=== PATIENT | male | born 1970 | race Caucasian/White ===

== ENCOUNTER 2019-04-04 01:05 | Emergency (ER) | payer OTHER ==
[~2019-04-04] VITALS: Ht 167.6 cm; Wt 113.4 kg
[~2019-04-04 01:05] MED LIST: BENA10TA4 PO; CARV12.598 PO; CIPR500T4 PO; HYDR-4011 PO; SPIR25TA PO; TAMS-14 PO
[2019-04-04 01:17] VITALS: Ht 167.6 cm; Wt 113.4 kg
[2019-04-04] MEDS ORDERED: ONDANSETRON 4 MG INJ IV STA (03:22)
[2019-04-04] MEDS ORDERED: KETOROLAC 15 MG INJ IV STA (03:22)
[2019-04-04] MEDS ORDERED: SOD CHLORIDE 0.9% 1,000 ML IV STA (03:22)
--- NOTE | 2019-04-04 04:03 | ERD ---
ER Documentation Chief Complaint Chief Complaint AP AND NAUSEA X TODAY. HPI This is a 48-year-old male with a past medical history of hypertension, cardiac disease, previous epididymitis, recent diagnosis of kidney stones who is pres enting with waxing and waning sharp stabbing colicky moderate left-sided flank pain radiating into the left side of his abdomen and into his groin with associated nausea but no vomiting. The patient reports that this feels like his previous kidney stone. He currently denies any dysuria or hematuria or urgency. He reports that he has been trying to drink a lot of water today and has been peeing a lot, which he would expect. The patient does not endorse any alleviating or exacerbating factors. His symptoms started suddenly this afternoon, and he was unable to get the pain under control at home on his own. He does not endorse any constipation or diarrhea. He does not report black or bloody or tarry stools. The patient denies feeling sick recently. The patient denies fever or chills. The patient has had no headache or vision changes. The patient does not endorse neck or back pain. The patient denies lightheadedness or dizziness. The patient has had no chest pain or trouble breathing. The patient has had no focal deficits. The patient has had no weakness or numbness or tingling to the face or extremities. ROS All systems reviewed and are negative except as per history of present illness. Medications Home Meds Active Scripts Hydrocodone/Acetaminophen ([place] 5-325 Tablet) 1 Each Tablet, 1 TAB PO Q6H PRN for PAIN, #20 TAB Prov:JALEEL MCDOWELL DO 06/11/16 Tamsulosin Hcl* (Flomax*) 0.4 Mg Cap.er.24h, 0.4 MG PO QPM, #30 CAP Prov:JALEEL MCDOWELL DO 06/11/16 Reported Medications Carvedilol* (Coreg*) 12.5 Mg Tablet, 12.5 MG PO BID, #60 TAB 06/11/16 Benazepril Hcl* (Benazepril Hcl*) 10 Mg Tablet, 10 MG PO DAILY, TAB 05/22/15 Discontinued Reported Medications Spironolactone* (Aldactone*) 25 Mg Tablet, 25 MG PO BID, #60 TAB 06/11/16 Discontinued Scripts Ciprofloxacin Hcl* (Ciprofloxacin Hcl*) 500 Mg Tablet, 500 MG PO BID for 10 Days, TAB Prov:JALEEL MCDOWELL DO 06/11/16 Allergies Allergies: Coded Allergies: No Known Allergy (Unverified , 04/04/19) PMhx/Soc Medical and Surgical Hx: pt denies Surgical Hx History of Surgery: No Anesthesia Reaction: No Hx Neurological Disorder: No Hx Respiratory Disorders: No Hx Cardiac Disorders: Yes (Hypertension, cardiac disease) Hx Psychiatric Problems: No Hx Miscellaneous Medical Probl: Yes (BPH) Hx Alcohol Use: No Hx Substance Use: No Hx Tobacco Use: Yes (12 cigarettes/day) Smoking Status: Current every day smoker FmHx Family History: No diabetes Physical Exam Vitals Vital Signs Date Temp Pulse Resp B/P (MAP) Pulse Ox O2 O2 Flow FiO2 Time Delivery Rate 04/04/19 98.0 78 16 147/93 99 Room Air 06:39 (111) 04/04/19 87 18 162/95 99 Room Air 05:55 (117) 04/04/19 83 19 172/98 97 Room Air 04:55 (122) 04/04/19 98.3 66 22 240/119 100 01:17 (159) Physical Exam Const: No apparent distress, well-developed, well-nourished Head: Normocephalic, Atraumatic Eyes: Normal Conjunctiva. Extraocular movements grossly intact. ENT: Normal External Ears, Nose and Mouth. Neck: Full range of motion. No meningismus. Resp: Clear to auscultation bilaterally, No wheezes, rales or rhonchi Cardio: Regular rate and rhythm. No murmurs, rubs or gallops Abd: Soft, non tender, non distended. Normal bowel sounds : Uncircumcised. No scrotal or testicular edema. Left-sided testicular tenderness. No obvious epididymal enlargement. Skin: No petechiae or rashes Back: No midline tenderness. Left-sided CVA tenderness Ext: No cyanosis, or edema Neur: Awake and alert, oriented 4. Cranial nerves intact. No facial droop. Normal strength, sensation and coordination. Psych: Normal Mood and Affect Result Diagram: 04/04/19 0540 04/04/19 0540 Results 24 hrs Laboratory Tests Test 04/04/19 05:40 04/04/19 05:55 White Blood Count 12.9 10^3/ul Red Blood Count 5.19 10^6/ul Hemoglobin 15.9 g/dl Hematocrit 44.3 % Mean Corpuscular Volume 85.4 fl Mean Corpuscular Hemoglobin 30.6 pg Mean Corpuscular Hemoglobin Concent 35.9 g/dl Red Cell Distribution Width 13.2 % Platelet Count 242 10^3/UL Mean Platelet Volume 9.6 fl Immature Granulocytes % 0.300 % Neutrophils % 78.2 % Lymphocytes % 13.8 % Monocytes % 6.7 % Eosinophils % 0.5 % Basophils % 0.5 % Nucleated Red Blood Cells % 0.0 /100WBC Immature Granulocytes # 0.040 10^3/ul Neutrophils # 10.1 10^3/ul Lymphocytes # 1.8 10^3/ul Monocytes # 0.9 10^3/ul Eosinophils # 0.1 10^3/ul Basophils # 0.1 10^3/ul Nucleated Red Blood Cells # 0.0 10^3/ul Sodium Level 141 mmol/L Potassium Level 3.1 mmol/L Chloride Level 106 mmol/L Carbon Dioxide Level 23 mmol/L Anion Gap 12 Blood Urea Nitrogen 17 mg/dl Creatinine 1.28 mg/dl Est Glomerular Filtrat Rate mL/min 59 mL/min Glucose Level 118 mg/dl Calcium Level 8.5 mg/dl Total Bilirubin 0.8 mg/dl Direct Bilirubin 0.00 mg/dl Indirect Bilirubin 0.8 mg/dl Aspartate Amino Transf (AST/SGOT) 29 IU/L Alanine Aminotransferase (ALT/SGPT) 24 IU/L Alkaline Phosphatase 94 IU/L Total Protein 7.7 g/dl Albumin 4.3 g/dl Globulin 3.40 g/dl Albumin/Globulin Ratio 1.26 Lipase 64 U/L Urine Color COLORLESS Urine Clarity CLEAR Urine pH 8.0 Urine Specific [place] 1.006 Urine Ketones NEGATIVE mg/dL Urine Nitrite NEGATIVE mg/dL Urine Bilirubin NEGATIVE mg/dL Urine Urobilinogen NEGATIVE mg/dL Urine Leukocyte Esterase NEGATIVE Denis/ul Urine Hemoglobin NEGATIVE mg/dL Urine Glucose NEGATIVE mg/dL Urine Total Protein NEGATIVE mg/dl Current Medications Medications Dose Sig/Yoan Start Time Status Last (Trade) Ordered Route PRN Stop Time Admin Dose Reason Admin Sodium 1,000 ml @ Q1H STAT 04/04/19 DC 04/04/19 Chloride 1,000 mls/hr IV 03:22 04/04/19 03:33 04:21 Ondansetron 4 mg ONCE STAT 04/04/19 DC 04/04/19 HCl (Zofran IV 03:22 04/04/19 03:33 Inj) 03:25 Ketorolac 15 mg ONCE STAT 04/04/19 DC 04/04/19 Tromethamine IV 03:22 04/04/19 03:33 (Toradol) 03:25 Nicardipine 30 mg ONCE ONCE 04/04/19 DC 04/04/19 HCl PO 04:30 04/04/19 04:16 (Cardene) 04:31 Fentanyl 50 mcg ONCE ONCE 04/04/19 DC 04/04/19 (Sublimaze) IV 04:30 04/04/19 04:16 04:31 Procedures/MDM MDM The patient's presentation warrants further investigation. Previous medical records, if available, were reviewed. LABS The patient's laboratory testing was obtained and reviewed. No emergent treatment was required unless described below. CBC: Mild leukocytosis, likely reactive. No E/o severe anemia or thrombocytopenia Chemistry: Hypokalemia, nonemergent. Mildly elevated creatinine, not emergent. No E/o severe acidosis or alkalosis or renal failure or liver disease or diabetic ketoacidosis Lipase: No E/o pancreatitis Urine: No E/o acute infection or hematuria IMAGING Imaging and Radiology interpretation reviewed. Ultrasound scrotum FINDINGS: Testicles are normal in size the right measuring 4.84 x 2.56 x 3.21 cm and the left measuring 4.77 x 2.26 x 3.23 cm. The testicular parenchymal echogenicity is homogeneous without focal lesions. Flow to both testicles without ultrasonic evidence of ovarian torsion. The epididymi are prominent with the right head measuring 1.75 x 0.78 x 0.91 cm and the left measuring 1.57 x 0.82 x 0.82 cm. No focal epididymal lesions demonstrated. Bilateral mild to moderate hydroceles. IMPRESSION: 1. Unremarkable testicles without focal lesions and no ultrasonic evidence of testicular torsion. 2. Prominent epididymi without focal lesions. Rule out epididymitis. 3. Mild to moderate bilateral hydroceles. Electronically viewed and signed by Physician Linnette on 04/04/2019 06:10 TREATMENT/DISPOSITION The patient presents for left-sided flank pain. The patient has had kidney stones in the past, my suspicion for nephrolithiasis is high. However, given the patient's lack of hematuria, I have very low suspicion for nephrolithiasis or renal colic. The patient also has a history of epididymitis and later endorsed that his symptoms today do feel similar to previous episodes of epididymitis. The patient does not believe he could have a sexually transmitted infection. His scrotal ultrasound revealed the possibility of epididymitis. I will treat for this. The patient was treated with IV fluids, Toradol and Zofran in the emergency department with some improvement of his symptoms. He is ultimately given a dose of fentanyl. .The patient does not have any evidence of peritonitis. The patient does not have clinical symptoms concerning for mesenteric ischemia or ischemic colitis. The patient does not have right upper quadrant tenderness, and I have low suspicion for gallstones, cholecystitis or biliary colic. The patient does not have any epigastric pain. I have low suspicion for gastritis, PUD or GERD. The patient does not have left upper quadrant tenderness. I have low suspicion for pancreatitis. The patient does not have any right lower quadrant tenderness, or periumbilical tenderness. I have low suspicion for appendicitis. The patient does not have suprapubic tenderness. I have decreased suspicion for cystitis. The patient does not have any left lower quadrant tenderness, and I have low suspicion for diverticulosis or diverticulitis. The patient does not have any palpable pulsatile mass or severe abdominal pain radiating to the back. I have low suspicion for aortic aneurysm, dissection or rupture. The patient's blood pressure was elevated at greater than 200/110 while in the emergency department. The patient did require a dose of Cardene in the emergency department to bring his blood pressure to not emergent levels. He admits to missing all of his blood pressure medications yesterday. The patient does have a mildly elevated creatinine, which could be related to his blood pressure. He understands the importance of taking them. The patient was otherwise stable with no evidence of hypertensive urgency or emergency. The patient does not require admission for blood pressure control. I have discussed with the patient the risks of hypertension. I have instructed the patient to return to the ER for any new or worsening symptoms including chest pain, linda rtness of breath, headache, blurred vision, confusion, nausea, vomiting or LOC. I have advised the patient to follow up with the primary care physician for outpatient monitoring and treatment for hypertension in 1-3 days. DISCHARGE Upon reevaluation of the patient, symptoms have improved. No emergent diagnoses were identified. At this time, I feel that the patient stable for discharge. The patient was instructed to follow-up with a primary care physician in 1-3 days. The patient will be given strict precautions with which to return to the emergency department. Prescriptions: Levaquin, ibuprofen Disclaimer: Inadvertent spelling and grammatical errors are likely due to EHR/dictation software use and do not reflect on the overall quality of patient care. Note that the electronic time recorded on this note does not necessarily reflect the actual time of the patient encounter. Departure Diagnosis: Primary Impression: Epididymitis without abscess Additional Impressions: Flank pain Abdominal pain Abdominal location: unspecified location Qualified Codes: R10.9 - Unspecified abdominal pain Testicle tenderness Condition: Stable Patient Instructions: Epididymitis, Flank Pain, Uncertain Cause Additional Instructions: Thank you for for coming to [facility] for your care today. Please ask your nurse or provider if you have questions about your care today and do not leave until all your questions have been answered. Please use any medications given as directed and follow-up with your doctor (or the doctor you were referred to) in the next 1-3 days. If you do not have a primary care doctor you may follow up at the [facility] or [facility] (listed below). You may also use motrin and tylenol as needed for fever and/or pain unless instructed otherwise by your provider or nurse. Indications for more urgent follow-up have been discussed, but you may return to the Emergency Department at ANY time for any worrisome or worsening symptoms. If you have abdominal pain, please know that no test or exam you received is perfect and you should follow up within 8 hours for continued pain. If you had any imaging studies today, such as an X-Ray or CT Scan, these studies will be reviewed later by a radiologist. You will be called if there are important findings that were not identified today, so make sure the contact information you provided at registration is correct. If you received any narcotic pain control medicine today, such as Vicodin, Morphine or Dilaudid, your coordination and judgment may be affected for a number of hours. Please do not drive or operate heavy machinery, and you may want someone to assist you at home. If you were given a prescription for narcotic medication, be aware that it is very addictive- use sparingly and only if necessary. PLEASE SEEK FURTHER EVALUATION AND MANAGEMENT AT YOUR DOCTORS OFFICE WITHIN THE NEXT 1-3 DAYS. IT IS YOUR RESPONSIBILITY TO MAKE AN APPOINTMENT FOR FOLOW-UP CARE. IF YOU HAVE A PRIMARY DOCTOR, PLEASE CALL THEIR OFFICE TO SCHEDULE AN APPOINTMENT FOR FOLLOW UP. IF YOU DO NOT HAVE A PRIMARY DOCTOR YOU CAN CALL OUR PHYSICIAN REFERRAL HOTLINE AT IF YOU CAN NOT AFFORD TO SEE A PHYSICIAN YOU CAN CHOSE FROM THE FOLLOWING PS[facility]IATRIC HOSPITAL CLINICS: [facility] [address] [facility] [address] [facility] [address] [facility] [address] [facility] [address]. [facility]. [address] ISAAC KELLY MD Apr 04, 2019 04:03
[2019-04-04] MEDS ORDERED: FENTAnyl 50 MCG/ML VIAL IV ONE (04:30)
[2019-04-04] MEDS ORDERED: NICARDipine HCL 30 MG CAPSULE PO ONE (04:30)
[2019-04-04 06:39] VITALS: BP 147/93; PULSE 78; RESP 16
[2019-04-04] MEDS ORDERED: IBUP-1542 PO (06:52)
[2019-04-04] MEDS ORDERED: LEVO750T25 PO (06:52)
== END 2019-04-04 07:19 | disposition home or self-care (01) ==
LOC: E/R 01:05
DX: N45.1 Epididymitis (principal); I10 Essential (primary) hypertension; F17.210 Nicotine dependence, cigarettes, uncomplicated
CPT/HCPCS: 76870; 80053; 81003; 83690; 85025; J1885; J2405; J3010; J7030; Z7610; 36415; 96374; 96375